=== PATIENT | male | born 1970 | race Caucasian/White ===

== ENCOUNTER 2017-04-20 20:29 | Inpatient (IN) | payer MEDICAID, OTHER ==
[~2017-04-20] VITALS: Ht 190.5 cm; Wt 115.5 kg
[2017-04-20 22:45] VITALS: BP 114/76
[2017-04-20] MEDS ORDERED: VITMTA PO (23:20)
[2017-04-20] MEDS ORDERED: OMEP40CA2 PO (23:20)
[2017-04-20] MEDS ORDERED: ACETAMINOPHEN TAB 650MG DOSE (2X325MG) PO PRN (23:30)
[2017-04-20] MEDS ORDERED: MOM 30ML SUSPENSION UDC PO PRN (23:30)
[2017-04-20] MEDS ORDERED: MAALOX 30 ML SUSP *UDC PO PRN (23:30)
[2017-04-20] MEDS: traZODone 50 MG TAB PO PRN (23:52)
[2017-04-21 06:49] VITALS: BP 114/76
--- NOTE | 2017-04-21 09:53 | HPEPDOC ---
Medical History and Physical Date of Admission Apr 21, 2017 History and Physical PCP: Dr. Willoughby ATTENDING: Dr. Andrei Encarnacion HPI: 46 yo M admitted to [facility] for unspecified depressive disorder, being medically examined today. Patient was transferred from [facility] to [facility] following apparent Seroquel overdose. No acute medical complaints today. Patient states he has chronic neck pain, low back pain, and right shoulder pain. This is being evaluated by his PCP with MRI scheduled of the cervical spine, lumbosacral spine and right shoulder. He has also been referred to [facility] orthopedics, appointment is pending. He has not been taking any specific medication for the pain. Patient states his pain is controlled at this time. He does not feel he needs to be evaluated by pain management. Denies any fevers, chills, weakness, fatigue, GIL, CP, SOB, cough, palpitations, abdominal pain, N/V/D or changes in bowel or bladder habits. PMHx: Chronic neck pain/low back pain/right shoulder pain. MRI cervical spine/ lumbosacral spine/right shoulder pending. Patient referred to [facility] orthopedics, appointment pending. IBS GERD Hiatal hernia Diverticulosis KASSIE/BiPAP Insomnia PTSD depression Obesity. BMI 31.8 PSHX: Right wrist fracture SOCHX: Resides in: [facility] Marital Status: Kids: 1 Employment: Unemployed Tobacco use: Denies ETOH: Denies Illicit Drugs: Marijuana 1-2 times per week IV Drug Use: Denies Tattoos done unprofessionally: Denies FAMHX: Mother: , JASS Father: , trauma-[employer] related per patient Siblings: One brother, 2 sisters Alive, well Children: Alive, history of seizure disorder Unexpected deaths due to medical reasons: None. ROS: As noted in HPI, otherwise 11pt ROS of systems reviewed and unremarkable. PE: GEN: 46 yo M, appears stated age. Well-nourished, well developed. No acute distress. Alert and oriented x 3. Pleasant, interactive. HEENT: Normocephalic, atraumatic. Pupils are equal, round, and reactive to light. Extraocular movements are intact. No nystagmus appreciated. Sclera are nonicteric. Conjunctiva without injection. Nose midline. Nasal turbinates without bogginess. EACs both patent BL. TMs both visualized and [place] with good cone of light, no bulging or erythema. No facial asymmetry. Moist mucous membranes. Dentition fair. Pharynx pink and moist, no cobblestoning. Neck supple , trachea midline. No lymphadenopathy or thyromegaly appreciated. CHEST: Regular rate and rhythm, +S1, +S2 LUNGS: Clear to auscultation bilaterally. No wheezes, rales, or rhonchi. Breathing appears symmetric and easy. Patient is speaking in full sentences. No accessory muscle use. ABD: Round, soft, non-tender, non-distended. +Bowel sounds throughout. No rebound or guarding. No costovertebral angle tenderness. EXT: Pulses 2+ bilaterally dorsalis pedis and radial. No lower extremity edema appreciated. SKIN: [place], dry, warm. Capillary refill <2sec. No rashes. NEURO: Alert and oriented x 3. Cranial nerves III-XII are intact. No focal deficits appreciated. EKG: CAH. NSR 70 bpm. CAH: PCXR unremarkable. Na 140 K 3.8 Cl 102 Gluc 107 BUN 16 SCr 16 AST 13 ALT 16 WBC 5.5 Hgb 15.5 HCT 42.9 PLt 157 CPK 159 TSH 1.98 Toxicology remarakble for THC. UA unremarkable. A&P: 46 yo M admitted to [facility] for unspecified depressive disorder 1. Psych. Plan per Psychiatry.Obtain baseline EKG to assure the safety of psychiatric medications as they can prolong the QT interval. 2. KASSIE. Continue BiPAP with outpatient settings. 3. GERD/hiatal hernia. Continue Prilosec 40 mg twice a day. 4. Follow up with PCP on discharge. 5. Substance use. Per psychiatry. 6. History of chronic neck pain/chronic low back pain/chronic right shoulder pain/chronic pain. Patient states he has imaging scheduled as outpatient. He has been referred to [facility] orthopedics, appointment is pending. He has follow- up with his PCP scheduled. Continue outpatient follow-up. Patient does not feel he needs any additional medications at this time. Patient does not wish to pursue pain management opinion. Continue Tylenol 650 mg every 6 hours as needed. 7. History of IBS. Continue outpatient follow-up. 8. Staff member Ruben present throughout exam. Vital Signs Vital Signs Date Time Temp Pulse Resp B/P (MAP) Pulse Ox O2 Delivery O2 Flow Rate FiO2 04/21/17 06:49 98.1 73 20 114/76 (89) 95 Room Air Home Medications Scheduled Multivitamins *[facility] STOCKED* (Thera M Plus *[facility] STOCKED*) 1 Tab Tab, 1 TAB PO DAILY for SUPPLEMENT Omeprazole (Omeprazole) 40 Mg Cap, 40 MG PO BID for GERD Allergies Coded Allergies: Penicillins (Verified Allergy, Unknown, 04/20/17) Thi Luque Apr 21, 2017 09:53
[2017-04-21] MEDS: OMEPRAZOLE 20 MG CAP PO SCH ×2 (10:07→21:04)
[2017-04-21] MEDS: MULTIVITAMINS/MINERALS THERAP 1 TAB PO SCH (10:08)
[2017-04-21] MEDS: buPROPion 100 MG TAB PO SCH (15:39)
[2017-04-21 18:22] VITALS: BP 128/78
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
[2017-04-21] MEDS: traZODone 50 MG TAB PO PRN (21:04)
[2017-04-21] MEDS: PRAZOSIN 1 MG CAP PO SCH (21:04)
[2017-04-22 06:53] VITALS: BP 120/58
[2017-04-22] MEDS: OMEPRAZOLE 20 MG CAP PO SCH ×2 (08:27→20:54)
[2017-04-22] MEDS: MULTIVITAMINS/MINERALS THERAP 1 TAB PO SCH (08:27)
[2017-04-22] MEDS: buPROPion 100 MG TAB PO SCH (08:27)
--- NOTE | 2017-04-22 17:04 | MHIPNPDOC ---
[facility] Progress Note Progress Note DATE OF SERVICE: 04/22/17 HISTORY: Reports that his mood is good. He had a visit from his last night which went well, afterwards the patient reported experiencing an epiphany that he needed to be more open with his and others if he wanted to heal. Patient stated that during an education group today he felt reticent to share his own story but decided to push past the discomfort and felt that his mood was vastly improved. Patient acknowledged a shift in his mindset that he was note "weak" for seeking help and stated that he had begun to realize that his fears prevented him from opening up. He recognized that his stoicness was a survival mechanism that he was forced to develop while working for the [employer]. Patient felt that he was becoming more connected to others. Also reported sleeping well and no nightmares, stated that he felt calmer on the unit and thought it was due to lack of "distractions". VITAL SIGNS: See below. NEW TEST RESULTS: no new labs/imaging CURRENT MEDICATIONS: See below. MENTAL STATUS EXAMINATION: Patient is a 46-year old male, who is dressed in [facility] with good hygiene/grooming; calm and cooperative, ebullient Speech: Is fluent; normal rate, tone, and volume Thought processes including: logical, linear, coherent Thought content: denies SI/HI; reports feeling more connected due to sharing Abstract reasoning, and computation: intact. Description of associations: intact Description of abnormal or psychotic thoughts: denies AVH, does not appear internally preoccupied; no paranoia or delusions. Judgment: good Insight: fair Orientation: x3 Recent and remote memory: intact Attention span and concentration: intact Mood: "good". Affect: bright; full range; congruent to mood and thought content DIAGNOSES: PTSD Unspecified Depressive Disorder ASSESSMENT: Patient is learning to cope with some of his previous negative thoughts. Has found that being open and sharing his feelings enables him to feel connected with others. He is on the early path to healing from his psychological scarring at this time. Currently the patient is enthusiastic and motivated to make changes in his life to enable him to be a better role model for his child. Benefitting greatly from skill and education groups as he has never spent the time to learn healthy coping mechanisms in his past. Would continue to benefit from further evaluation and stabilization at this time while he adjusts to his new medications. MANAGEMENT PLAN: continue current medications; encourage patient to attend groups TIME SPENT: minutes. Vital Signs Vital Signs Date Time Temp Pulse Resp B/P (MAP) Pulse Ox O2 Delivery O2 Flow Rate FiO2 04/22/17 06:53 97.8 74 16 120/58 (78) Room Air 04/21/17 06:49 95 Current Medications Current Medications Acetaminophen (Tylenol Tab) 650 mg Q6HP PRN PO HEADACHE or DISCOMFORT Last administered on 04/20/17 23:52; Start 04/20/17 at 23:30; Stop 05/20/17 at 23: 29 Al Hydrox/Mg Hydrox/Simethicone (Mylanta) 30 ml Q4HP PRN PO HEARTBURN/ INDIGESTION; Start 04/20/17 at 23:30; Stop 05/20/17 at 23:29 Bupropion HCl (Wellbutrin) 50 mg DAILY PO Last administered on 04/22/17 08:27 ; Start 04/21/17 at 09:00; Stop 05/21/17 at 08:59 Home Med (Med Rec Complete!) ASDIRECTED XX ; Start 04/20/17 at 23:30; Stop at 23:30; Status DC Magnesium Hydroxide (Milk Of Magnesia) 30 ml DAILYPRN PRN PO CONSTIPATION; Start 04/20/17 at 23:30; Stop 05/20/17 at 23:29 Multivitamins (Theragram-M) 1 tab DAILY PO Last administered on 04/22/17 08:27 ; Start 04/21/17 at 09:00; Stop 05/21/17 at 08:59 Omeprazole (PriLOSEC) 40 mg BID PO Last administered on 04/22/17 08:27; Start 04/21/17 at 09:00; Stop 05/21/17 at 08:59 Prazosin HCl (Minipress) 2 mg QHS PO Last administered on 04/21/17 21:04; Start 04/21/17 at 21:00; Stop 05/21/17 at 20:59 Trazodone HCl (Desyrel) 50 mg QHSP PRN PO INSOMNIA Last administered on 21:04; Start 04/20/17 at 23:30; Stop 05/20/17 at 23:29 Allergies Coded Allergies: Penicillins (Verified Allergy, Unknown, 04/20/17) MICHAELLE SCHUMACHER MD Apr 22, 2017 17:04
[2017-04-22 18:00] VITALS: BP 141/89
[2017-04-22] MEDS: traZODone 50 MG TAB PO PRN (20:54)
[2017-04-22 20:56] VITALS: BP 159/92
[2017-04-22] MEDS: PRAZOSIN 1 MG CAP PO SCH (20:56)
[2017-04-23 06:35] VITALS: BP 135/80
[2017-04-23] MEDS: OMEPRAZOLE 20 MG CAP PO SCH (08:25)
[2017-04-23] MEDS: buPROPion 100 MG TAB PO SCH (08:25)
[2017-04-23] MEDS: MULTIVITAMINS/MINERALS THERAP 1 TAB PO SCH (08:25)
[2017-04-23] MEDS ORDERED: TRAZO50TA PO (15:59)
[2017-04-23] MEDS ORDERED: BUPR50TA PO (15:59)
[2017-04-23] MEDS ORDERED: MINI1CAP PO (15:59)
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
[2017-04-23 18:22] VITALS: BP 137/67
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
== END 2017-04-23 18:10 | disposition home or self-care (01) | DRG 754 ==
LOC: EDBD 20:29 → M ED 20:29 → M ED INP 21:53 → M PSY 22:39
PROVIDERS: ADMIT Psychiatry & Neurology Psychiatry; ATTEND Psychiatry & Neurology Child & Adolescent Psychiatry
DX: F32.9 Major depressive disorder, single episode, unspecified (principal); E66.9 Obesity, unspecified; F60.2 Antisocial personality disorder; Z88.0 Allergy status to penicillin; K21.9 Gastro-esophageal reflux disease without esophagitis; G47.30 Sleep apnea, unspecified; Z68.31 Body mass index [BMI] 31.0-31.9, adult; K44.9 Diaphragmatic hernia without obstruction or gangrene; K57.30 Diverticulosis of large intestine without perforation or abscess without bleeding; M54.5 Low back pain; M54.2 Cervicalgia; G89.29 Other chronic pain; Z79.899 Other long term (current) drug therapy